=== PATIENT | male | born 1975 | race Two or more races ===

== ENCOUNTER 2017-03-17 15:58 | Emergency (ER) | payer SELFPAY ==
[2017-03-17] MEDS ORDERED: ONDANSETRON HCL INJ/PF 4 MG/2 ML SDV IV ONE ×2 (17:22→20:09)
[2017-03-17] MEDS ORDERED: MORPHINE SULFATE 10 MG/ML INJ IV ONE (17:22)
[2017-03-17] MEDS ORDERED: NORMAL SALINE 1000 ML 1,000 ML IV ONE (17:22)
--- NOTE | 2017-03-17 17:22 | ER Document Report ---
ED Medical Screen (RME) - General Mode of Arrival: Ambulatory Information source: Patient TRAVEL OUTSIDE OF THE [place] IN LAST 30 DAYS: No - HPI Patient complains to provider of: abdominal pain Onset: Other - yesterday Associated Symptoms: Other - see notes above - Related Data Smoking: Non-smoker Frequency of alcohol use: Occasional <DEEPAK GONCALVES - Last Filed: 03/17/17 18:01> <CORNELIUS KAISER - Last Filed: 03/27/17 07:00> - General Chief Complaint: Abdominal Pain Stated Complaint: ABDOMINAL PAIN Time Seen by Provider: 03/17/17 17:12 Notes: 41 year old male with no prior medical history presents to the ED complaining of periumbilical abdominal pain that started yesterday and worsened today. Patient reports that the pain does not radiate, but complains of diarrhea and dry heaving. Patient denies vomiting. I have greeted and performed a rapid initial assessment of this patient. A comprehensive ED assessment and evaluation of the patient, analysis of test results and completion of the medical decision making process will be conducted by additional ED providers. (DEEPAK GONCALVES) - Related Data Allergies/Adverse Reactions: No Known Drug Allergies Allergy (Verified 03/17/17 19:40) Past Medical History - General Information source: Patient - Social History Chew tobacco use (# tins/day): No Frequency of alcohol use: None Drug Abuse: None Family history: Reviewed & Not Pertinent - Medical History Medical History: Negative Renal/ Medical History: Denies: Hx Peritoneal Dialysis Past Surgical History: Reports: Hx Orthopedic Surgery - back <DEEPAK GONCALVES - Last Filed: 03/17/17 18:01> Review of Systems - Review of Systems Constitutional: No symptoms reported EENT: No symptoms reported Cardiovascular: No symptoms reported Respiratory: No symptoms reported Gastrointestinal: See HPI, Abdominal pain, Diarrhea, Other - dry heaving. denies: Vomiting Genitourinary: No symptoms reported Male Genitourinary: No symptoms reported Musculoskeletal: No symptoms reported Skin: No symptoms reported Hematologic/Lymphatic: No symptoms reported Neurological/Psychological: No symptoms reported -: Yes All other systems reviewed and negative <DEEPAK GONCALVES - Last Filed: 03/17/17 18:01> Physical Exam - General General appearance: Alert In distress: None - HEENT Head: Normocephalic, Atraumatic Eyes: Normal Extraocular movements intact: Yes Pupils: PERRL - Respiratory Respiratory status: No respiratory distress Breath sounds: Normal - Cardiovascular Rhythm: Regular Heart sounds: Normal auscultation - Abdominal Inspection: Normal Distension: No distension Tenderness: Tender - periumbilical and RLQ tenderness to palpation <DEEPAK GONCALVES - Last Filed: 03/17/17 18:01> Course - Laboratory Result Diagrams: 03/17/17 17:36 03/17/17 17:36 <DEEPAK GONCALVES - Last Filed: 03/17/17 18:01> - Laboratory Result Diagrams: 03/17/17 17:36 03/17/17 19:50 <CORNELIUS KAISER - Last Filed: 03/27/17 07:00> - Re-evaluation Re-evalutation: 03/27/17 07:00 I personally performed the services described in the documentation, reviewed and edited the documentation which was dictated to the scribe in my presence, and it accurately records my words and actions. (CORNELIUS KAISER) - Vital Signs Vital signs: Temp Pulse Resp BP Pulse Ox 98.4 F 79 14 143/92 H 98 03/17/17 21:09 03/17/17 21:09 03/17/17 21:09 03/17/17 21:09 03/17/17 21:09 - Laboratory Laboratory results interpreted by me: 03/17/17 03/17/17 17:31 17:36 WBC 15.1 H Seg Neutrophils % 81.5 H Absolute Neutrophils 12.3 H Urine Protein 30 H Urine Ketones TRACE H Urine Ascorbic Acid 40 H Doctor's Discharge <DEEPAK GONCALVES - Last Filed: 03/17/17 18:01> <CORNELIUS KAISER - Last Filed: 03/27/17 07:00> - Discharge Clinical Impression: Diarrhea, Abdominal cramps Condition: Good Disposition: HOME, SELF-CARE Instructions: Observation for Appendicitis ([facility]) Additional Instructions: Your symptoms are likely due to a viral illness and should resolve in the next several days. You can take [id number] loperamide also known as Imodium as needed for diarrhea per box instructions. Continue to stay hydrated with plenty of solution such as Gatorade or Pedialyte. You are being prescribed Zofran to take as needed for nausea and vomiting. Please return if you develop severe abdominal pain, pass out, become unable to tolerate any oral fluids for 12 more hours, or any other symptoms that are concerning to you. Scribe Documentation - Scribe Written by Erin:: Erin Cordova, 03/17/2017 1759 acting as scribe for :: [place] <DEEPAK GONCALVES - Last Filed: 03/17/17 18:01>
[2017-03-17 17:58] LABS: ABSOLUTE EOSINOPHILS # (AUTO) 0.1 10^3/uL (0.0-0.6); ABSOLUTE MONOCYTES (AUTO) 0.7 10^3/uL (0.1-1.4); ABSOLUTE NEUT (AUTO) 12.3 10^3/uL (1.7-8.2); BASOPHILS % (AUTO) 0.2 % (0-2); EOSINOPHILS % (AUTO) 0.3 % (0-6); HEMATOCRIT 48.2 % (37.9-51.0); HEMOGLOBIN 16.3 g/dL (13.5-17.0); HGB HCT DIFFERENCE 0.7; LYMPHOCYTES % (AUTO) 13.4 % (13-45); MEAN CORPUSCULAR HEMOGLOBIN 30.3 pg (27.0-33.4); MEAN CORPUSCULAR HGB CONC 33.9 g/dL (32.0-36.0); MEAN CORPUSCULAR VOLUME 90 fl (80-97); MONOCYTES % (AUTO) 4.6 % (3-13); RED BLOOD COUNT 5.39 10^6/uL (4.35-5.55); RED CELL DISTRIBUTION WIDTH 13.8 % (11.5-14.0); SEGMENTED NEUTROPHILS % (AUTO) 81.5 % (42-78); WHITE BLOOD COUNT 15.1 10^3/uL (4.0-10.5)
--- NOTE | 2017-03-17 18:57 | ER Document Report ---
ED General - General Chief Complaint: Abdominal Pain Stated Complaint: ABDOMINAL PAIN Time Seen by Provider: 03/17/17 17:12 Mode of Arrival: Ambulatory Notes: Patient is a 41 year old male without past medical history who presents with 36 hours of persistent, watery diarrhea with associated abdominal cramping. Patient states that he has "been unable to get off the toilet" for the last day and a half due to persistent watery diarrhea. With his he notes an associated diffuse, mild, abdominal cramping. He has not had any fever. Notes nausea without vomiting. No history of similar symptoms in the past. His significant other has had similar symptoms but they resolved more rapidly. He has not seen his primary care doctor regarding today's concerns. He has not noted that anything seems to improve or worsen his symptoms. TRAVEL OUTSIDE OF THE [place] IN LAST 30 DAYS: No - Related Data Allergies/Adverse Reactions: No Known Drug Allergies Allergy (Verified 03/17/17 19:40) Past Medical History - General Information source: Patient - Social History Smoking Status: Never Smoker Chew tobacco use (# tins/day): No Frequency of alcohol use: None Drug Abuse: None Lives with: Spouse/Significant other Family History: Reviewed & Not Pertinent Patient has suicidal ideation: No Patient has homicidal ideation: No - Medical History Medical History: Negative Renal/ Medical History: Denies: Hx Peritoneal Dialysis Past Surgical History: Reports: Hx Orthopedic Surgery - back Review of Systems - Review of Systems Notes: Constitutional: Negative for fever. HENT: Negative for sore throat. Eyes: Negative for visual changes. Cardiovascular: Negative for chest pain. Respiratory: Negative for shortness of breath. Gastrointestinal: Positive for abdominal pain and diarrhea Genitourinary: Negative for dysuria. Musculoskeletal: Negative for back pain. Skin: Negative for rash. Neurological: Negative for headaches, weakness or numbness. 10 point ROS negative except as marked above and in HPI. Physical Exam - Vital signs Vitals: Temp Pulse Resp BP Pulse Ox 98.2 F 107 H 18 154/115 H 97 03/17/17 16:08 03/17/17 16:08 03/17/17 16:08 03/17/17 16:08 03/17/17 16:08 Interpretation: Tachycardic Notes: PHYSICAL EXAMINATION: GENERAL: Well-appearing, well-nourished and in no acute distress. HEAD: Atraumatic, normocephalic. EYES: Pupils equal round and reactive to light, extraocular movements intact, sclera anicteric, conjunctiva are normal. ENT: nares patent, oropharynx clear without exudates. Moist mucous membranes. NECK: Normal range of motion, supple without lymphadenopathy LUNGS: Breath sounds clear to auscultation bilaterally and equal. No wheezes rales or rhonchi. HEART: Regular rate and rhythm without murmurs ABDOMEN: Soft, nontender, normoactive bowel sounds. No guarding, no rebound. No masses appreciated. EXTREMITIES: Normal range of motion, no pitting or edema. No cyanosis. NEUROLOGICAL: No focal neurological deficits. Moves all extremities spontaneously and on command. PSYCH: Normal mood, normal affect. SKIN: Warm, Dry, normal turgor, no rashes or lesions noted. Course - Re-evaluation Re-evalutation: 03/17/17 18:56 Presentation of an overall well-appearing patient in no acute distress with complaints of nausea, vomiting, diarrhea. This is consistent with likely viral gastroenteritis. Patient has no abdominal tenderness on exam and specifically no tenderness in the RLQ, LLQ, RUQ. Contrary to triage assessment was reported right lower quadrant tenderness patient himself actually denies any pain to me whatsoever and states that the main issue is that he was having recurrent diarrhea and diffuse abdominal cramping which is why he came to the emergency department. He has absolutely no focal tenderness whatsoever on exam to suggest an acute appendicitis. Overall well hydrated on exam. Able to tolerate oral intake here in the emergency department. Low clinical suspicion for any acute life-threatening etiology based on exam and history including acute cholecystitis, SBO, appendicitis, nephrolithiasis, or pylonephritis. CMP without evidence of acute hepatitis or significant dehydration. I have had a risks and benefits conversation with the patient regarding CT imaging of the abdomen and pelvis at this time. We discussed, based on today's exam and labs there is a possibility that they could have a diagnosis that could be better clarified by CT and that this could possibly military exchange [employer]. We discussed the risks of radiation to the abdomen and pelvis. We discussed the alternative of close follow-up with their primary care physician for a recheck of the abdomen within 24 hours as well as reasons to return to the emergency department. After this conversation, the patient has elected to avoid CT imaging of the abdomen and pelvis at this time. They have capacity. They have verbalized the importance of close follow-up as well as reasons to return to the emergency department including worsening abdominal pain, fever, persistent vomiting, or any other symptoms that are worrisome to them. - Vital Signs Vital signs: Temp Pulse Resp BP Pulse Ox 98.4 F 79 14 143/92 H 98 03/17/17 21:09 03/17/17 21:09 03/17/17 21:09 03/17/17 21:09 03/17/17 21:09 - Laboratory Result Diagrams: 03/17/17 17:36 03/17/17 19:50 Laboratory results interpreted by me: 03/17/17 03/17/17 17:31 17:36 WBC 15.1 H Seg Neutrophils % 81.5 H Absolute Neutrophils 12.3 H Urine Protein 30 H Urine Ketones TRACE H Urine Ascorbic Acid 40 H Discharge - Discharge Clinical Impression: Abdominal cramping Diarrhea Qualifiers: Diarrhea type: unspecified type Qualified Code(s): R19.7 - Diarrhea, unspecified Condition: Good Disposition: HOME, SELF-CARE Instructions: Observation for Appendicitis ([facility]) Additional Instructions: Your symptoms are likely due to a viral illness and should resolve in the next several days. You can take wroy-lib-irbrjyo loperamide also known as Imodium as needed for diarrhea per box instructions. Continue to stay hydrated with plenty of solution such as Gatorade or Pedialyte. You are being prescribed Zofran to take as needed for nausea and vomiting. Please return if you develop severe abdominal pain, pass out, become unable to tolerate any oral fluids for 12 more hours, or any other symptoms that are concerning to you.
[2017-03-17 19:14] LABS: APPEARANCE,URINE SLIGHTLY-CLOUDY; BILIRUBIN,URINE NEGATIVE (NEGATIVE); GLUCOSE, URINE NEGATIVE (NEGATIVE); KETONES,URINE TRACE mg/dL (NEGATIVE); LEUKOCYTE ESTERASE,URINE NEGATIVE (NEGATIVE); NITRITE,URINE NEGATIVE (NEGATIVE); PROTEIN,URINE 30 mg/dL (NEGATIVE); URINE SPECIFIC GRAVITY 1.031; UROBILINOGEN,URINE NEGATIVE mg/dL (<2.0)
[2017-03-17 20:19] LABS: ALANINE AMINOTRANSFERASE 30 U/L (21-72); ALBUMIN 4.6 g/dL (3.5-5.0); ALKALINE PHOSPHATASE 64 U/L (38-126); ANION GAP 13 (5-19); ASPARTATE AMINO TRANSFERASE 20 U/L (17-59); BILIRUBIN,DIRECT 0.3 mg/dL (0.0-0.4); BILIRUBIN,TOTAL 0.7 mg/dL (0.2-1.3); BLOOD UREA NITROGEN 14 mg/dL (7-20); CALCIUM 9.8 mg/dL (8.4-10.2); CARBON DIOXIDE 22 mmol/L (22-30); CHLORIDE 106 mmol/L (98-107); CREATININE RESULT 0.76 mg/dL (0.52-1.25); GLUCOSE 93 mg/dL (75-110); LIPASE 154.6 U/L (23-300); POTASSIUM 4.5 mmol/L (3.6-5.0); SODIUM 141.4 mmol/L (137-145); TOTAL PROTEIN 7.5 g/dL (6.3-8.2)
[2017-03-17] MEDS ORDERED: ONDANSETRON ODT 4 MG TAB (6 TAB/DSPK) PO PRN (20:56)
[2017-03-17 21:21] VITALS: BP 143/92
== END 2017-03-17 21:15 | disposition home or self-care (01) ==
LOC: ER 15:58
DX: R10.84 Generalized abdominal pain (principal); R19.7 Diarrhea, unspecified; R11.0 Nausea; R00.0 Tachycardia, unspecified
CPT/HCPCS: 96376; 99284; 96361; 96374; 96375; 36415; 83690; 85025; 80053; 81001; J2270; J2405; J7030

== ENCOUNTER 2017-11-08 17:02 | Emergency (ER) | payer OTHER ==
--- NOTE | 2017-11-08 18:00 | ER Document Report ---
ED Medical Screen (RME) - General Chief Complaint: Breathing Difficulty Stated Complaint: SHORTNESS OF BREATH Time Seen by Provider: 11/08/17 17:58 Mode of Arrival: Ambulatory Information source: Patient TRAVEL OUTSIDE OF THE [place] IN LAST 30 DAYS: No - HPI Patient complains to provider of: cp; sob Onset: Other - pt states he has been having intermittent CP and SOB for the past few days; has not taken ASA today - Related Data Allergies/Adverse Reactions: No Known Drug Allergies Allergy (Verified 11/08/17 17:02) Past Medical History - Social History Chew tobacco use (# tins/day): No Frequency of alcohol use: None Drug Abuse: None Family history: Reviewed & Not Pertinent - Past Medical History Cardiac Medical History: Reports: Hx Hypertension - no meds Renal/ Medical History: Denies: Hx Peritoneal Dialysis Past Surgical History: Reports: Hx Orthopedic Surgery - back Physical Exam - Vital signs Vitals: Temp Pulse Resp BP Pulse Ox 98.2 F 97 16 148/113 H 97 11/08/17 17:17 11/08/17 17:17 11/08/17 17:17 11/08/17 17:17 11/08/17 17:17 Course - Vital Signs Vital signs: Temp Pulse Resp BP Pulse Ox 98.2 F 97 16 155/108 H 97 11/08/17 17:17 11/08/17 17:17 11/08/17 17:17 11/08/17 17:19 11/08/17 17:17
[2017-11-08] MEDS: ASPIRIN 81 MG TABLET, CHEWABLE PO ONE (18:05)
--- NOTE | 2017-11-08 18:42 | RADIOLOGY REPORT (SQ) ---
EXAM DESCRIPTION: CHEST PA/LAT COMPLETED DATE/TIME: 11/08/2017 6:32 pm REASON FOR STUDY: cp COMPARISON: None. NUMBER OF VIEWS: Two view. TECHNIQUE: Frontal and lateral radiographic views of the chest acquired. LIMITATIONS: None. FINDINGS: LUNGS AND PLEURA: 1 cm vague nodular density projected over the left mid lung zone. No p revious chest x-rays. Recommend correlation with any outside studies -CT of the chest if none availa ble. Remainder the lungs clear. MEDIASTINUM AND HILAR STRUCTURES: No masses or contour abnormalities. HEART AND VASCULATURE: Heart normal size. No evidence for failure. BONY STRUCTURES: No acute findings. HARDWARE: None. OTHER: No other significant finding. IMPRESSION: Vague 1 cm nodular density projected over the left mid lung. See above discussion. TECHNICAL DOCUMENTATION: JOB ID: [id number] [employer]- All Rights Reserved
[2017-11-08 19:00] LABS: ABSOLUTE EOSINOPHILS # (AUTO) 0.1 10^3/uL (0.0-0.6); ABSOLUTE LYMPHOCYTES (AUTO) 2.1 10^3/uL (0.5-4.7); ABSOLUTE MONOCYTES (AUTO) 0.4 10^3/uL (0.1-1.4); ABSOLUTE NEUT (AUTO) 4.4 10^3/uL (1.7-8.2); BASOPHILS % (AUTO) 0.4 % (0-2); EOSINOPHILS % (AUTO) 1.1 % (0-6); HEMATOCRIT 45.4 % (37.9-51.0); HEMOGLOBIN 15.6 g/dL (13.5-17.0); LYMPHOCYTES % (AUTO) 29.8 % (13-45); MEAN CORPUSCULAR HEMOGLOBIN 30.3 pg (27.0-33.4); MEAN CORPUSCULAR HGB CONC 34.3 g/dL (32.0-36.0); MEAN CORPUSCULAR VOLUME 88 fl (80-97); MONOCYTES % (AUTO) 6.3 % (3-13); PLATELET COUNT 324 10^3/uL (150-450); RED BLOOD COUNT 5.14 10^6/uL (4.35-5.55); SEGMENTED NEUTROPHILS % (AUTO) 62.4 % (42-78); TOTAL CELLS COUNTED % (AUTO) 100 %
[2017-11-08 19:26] LABS: ALANINE AMINOTRANSFERASE 56 U/L (21-72); ALBUMIN 4.8 g/dL (3.5-5.0); ALKALINE PHOSPHATASE 58 U/L (38-126); ANION GAP 11 (5-19); ASPARTATE AMINO TRANSFERASE 45 U/L (17-59); BILIRUBIN,DIRECT 0.4 mg/dL (0.0-0.4); BILIRUBIN,TOTAL 0.4 mg/dL (0.2-1.3); BLOOD UREA NITROGEN 10 mg/dL (7-20); CARBON DIOXIDE 28 mmol/L (22-30); CHLORIDE 102 mmol/L (98-107); CREATINE KINASE 191 U/L (55-170); GLUCOSE 80 mg/dL (75-110); POTASSIUM 4.4 mmol/L (3.6-5.0); SODIUM 141.3 mmol/L (137-145); TOTAL PROTEIN 7.7 g/dL (6.3-8.2)
[2017-11-08 19:37] LABS: CREATINE KINASE MB 2.99 ng/mL (<4.55)
[2017-11-08 19:40] LABS: TROPONIN I 0.041 ng/mL
--- NOTE | 2017-11-08 21:11 | ER Document Report ---
ED General - General Chief Complaint: Breathing Difficulty Stated Complaint: SHORTNESS OF BREATH Time Seen by Provider: 11/08/17 17:58 Mode of Arrival: Ambulatory Notes: 42-year-old male presents with 3 days of shortness of breath, constant with chest pressure all day. Preventing him from working out. He does not have any sharp chest pain no pleuritic component, no leg swelling. Nonexertional. Keeps him up at night sometimes. Intermittent palpitations. No sweating. No family history no smoking no known cancer. TRAVEL OUTSIDE OF THE [place] IN LAST 30 DAYS: No - Related Data Allergies/Adverse Reactions: No Known Drug Allergies Allergy (Verified 11/08/17 17:02) Past Medical History - General Information source: Patient - Social History Smoking Status: Never Smoker Chew tobacco use (# tins/day): No Frequency of alcohol use: None Drug Abuse: None Family History: Reviewed & Not Pertinent Patient has suicidal ideation: No Patient has homicidal ideation: No - Past Medical History Cardiac Medical History: Reports: Hx Hypertension - no meds Renal/ Medical History: Denies: Hx Peritoneal Dialysis Past Surgical History: Reports: Hx Orthopedic Surgery - back Review of Systems - Review of Systems Notes: REVIEW OF SYSTEMS GEN: Denies fever, chills, weight loss ENT: Denies sore throat, nasal discharge, ear pain EYES: Denies blurry vision, eye pain, discharge CV: His pressure, palpitations, denies edema RESP: Shortness of breath GI: Denies abdominal pain, nausea, vomiting, diarrhea MSK: Denies joint pain/swelling, edema, SKIN: Denies rash, skin lesions LYMPH: Denies swollen glands/lymph nodes NEURO: Denies headache, focal weakness or numbness, dizziness PSYCH: Denies depression, suicidal or homicidal ideation PHYSICAL EXAMINATION General: No acute distress, well-nourished Head: Atraumatic, normocephalic ENT: Mouth normal, oropharynx moist, no exudates or tonsillar enlargement Eyes: Conjunctiva normal, pupils equal, lids normal Neck: No JVD, supple, no guarding CVS: Normal rate, regular rhythm, no murmurs Resp: No resp distress, equal and normal breath sounds bilaterally GI: Nondistended, soft, no tenderness to palpation, no rebound or guarding Ext: No deformities, no edema, normal range of motion in upper and lower ext Back: No CVA or midline TTP Skin: No rash, warm Lymphatic: No lymphadeopathy noted Neuro: Awake, alert. Face symmetric. GCS 15. Physical Exam - Vital signs Vitals: Temp Pulse Resp BP Pulse Ox 98.2 F 97 16 148/113 H 97 11/08/17 17:17 11/08/17 17:17 11/08/17 17:17 11/08/17 17:17 11/08/17 17:17 Course - Re-evaluation Re-evalutation: 11/08/17 21:10 Patient presents with chest pressure and shortness of breath for 3 days. He is PERC negative. His lungs are normal, as is his exam. He has no risk factors for coronary disease and is a healthy young man. His workup ordered at triage shows a negative d-dimer normal labs and a normal EKG. He has a lesion in his left hemithorax on his chest film. It does not look like pneumonia especially given no cough or fever. He was instructed that he will definitely need CT and follow-up for this nodule, he does not have a primary care but has a care [facility] he will be referred to [facility]. Spoke with patient access about expedited follow-up. Do not think he needs a CT in the ED tonight. I have discussed with the patient there likely diagnosis, aftercare plan, follow -up plans and my usual and customary return precautions. They verbalized understanding of this. - Vital Signs Vital signs: Temp Pulse Resp BP Pulse Ox 98.2 F 97 16 155/108 H 97 11/08/17 17:17 11/08/17 17:17 11/08/17 17:17 11/08/17 17:19 11/08/17 17:17 - Laboratory Result Diagrams: 11/08/17 18:40 11/08/17 18:40 Laboratory results interpreted by me: 11/08/17 18:40 Creatine Kinase 191 H - Diagnostic Test Radiology reviewed: Image reviewed, Reports reviewed - EKG Interpretation by Me EKG shows normal: Sinus rhythm Rate: Normal When compared to previous EKG there are: Previous EKG unavailable Additional EKG results interpreted by me: 11/08/17 21:06 Specifically no signs of ischemia Discharge - Discharge Clinical Impression: Shortness of breath Condition: Good Disposition: HOME, SELF-CARE Instructions: Dyspnea, Nonspecific ([facility]) Additional Instructions: There is a small round nodule in her left lung that we found. I do not think it is causing her symptoms. It does, however need follow-up with [place] [facility] scan and primary care. We have referred you to [facility] to get this done. They may also want to do a stress test for you. If anything changes and your symptoms worsen please return to the ER for further evaluation. Referrals: [facility] [Provider Group] - Follow up in 1 week
[2017-11-08 21:39] VITALS: BP 144/100
--- NOTE | 2017-11-08 22:40 | EKG REPORT ---
SEVERITY:- NORMAL ECG - SINUS RHYTHM : Confirmed by: Wilfrid Quinones 08-Nov-2017 22:39:32
== END 2017-11-08 21:42 | disposition home or self-care (01) ==
LOC: ER 17:02
DX: R06.02 Shortness of breath (principal); R07.89 Other chest pain; R91.8 Other nonspecific abnormal finding of lung field; R00.2 Palpitations; I10 Essential (primary) hypertension
CPT/HCPCS: 36415; 71046; 80053; 82550; 82553; 84484; 85025; 85379; 93005; 93010; 99285

== ENCOUNTER 2017-11-09 15:41 | Emergency (ER) | payer OTHER ==
--- NOTE | 2017-11-09 17:25 | ER Document Report ---
ED Medical Screen (RME) - General Chief Complaint: Shortness Of Breath Stated Complaint: SHORTNESS OF BREATH Time Seen by Provider: 11/09/17 17:16 Notes: Patient is a 42 year old male who presents to the ED complaining of chest pressure that started suddenly on Tuesday. feels like he cant catch his breath. Denies pain. Denies fevers, cough, denies reflux, nausea. h/o anxiety. franca h/o COPD, asthma. nonsmoker TRAVEL OUTSIDE OF THE [place] IN LAST 30 DAYS: No - Related Data Allergies/Adverse Reactions: No Known Drug Allergies Allergy (Verified 11/09/17 15:45) Past Medical History - Social History Family history: Reviewed & Not Pertinent - Past Medical History Cardiac Medical History: Reports: Hx Hypertension - no meds Renal/ Medical History: Denies: Hx Peritoneal Dialysis Past Surgical History: Reports: Hx Orthopedic Surgery - back Physical Exam - Vital signs Vitals: Temp Pulse Resp BP Pulse Ox 99.1 F 88 18 145/94 H 98 11/09/17 15:56 11/09/17 15:56 11/09/17 15:56 11/09/17 15:56 11/09/17 15:56 - Notes Notes: PHYSICAL EXAM GENERAL: Alert, interacts well. NECK: Full range of motion. Supple. Trachea midline. LUNGS: Clear to auscultation bilaterally, no wheezes, rales, or rhonchi. No respiratory distress. HEART: Regular rate and rhythm. No murmurs, gallops, or rubs. NEUROLOGICAL: Alert and oriented x4. Normal speech. PSYCH: Normal affect, normal mood. SKIN: Warm, dry, normal turgor. No rashes or lesions noted. Course - Vital Signs Vital signs: Temp Pulse Resp BP Pulse Ox 99.1 F 88 18 145/94 H 98 11/09/17 15:56 11/09/17 15:56 11/09/17 15:56 11/09/17 15:56 11/09/17 15:56
[2017-11-09] MEDS ORDERED: ASPIRIN 81 MG TABLET, CHEWABLE PO ONE (17:26)
[2017-11-09 18:25] LABS: ABSOLUTE EOSINOPHILS # (AUTO) 0.1 10^3/uL (0.0-0.6); ABSOLUTE LYMPHOCYTES (AUTO) 2.3 10^3/uL (0.5-4.7); ABSOLUTE MONOCYTES (AUTO) 0.6 10^3/uL (0.1-1.4); ABSOLUTE NEUT (AUTO) 5.1 10^3/uL (1.7-8.2); BASOPHILS % (AUTO) 0.4 % (0-2); EOSINOPHILS % (AUTO) 1.3 % (0-6); HEMATOCRIT 46.5 % (37.9-51.0); HEMOGLOBIN 16.4 g/dL (13.5-17.0); LYMPHOCYTES % (AUTO) 28.2 % (13-45); MEAN CORPUSCULAR HEMOGLOBIN 30.9 pg (27.0-33.4); MEAN CORPUSCULAR HGB CONC 35.3 g/dL (32.0-36.0); MEAN CORPUSCULAR VOLUME 88 fl (80-97); MONOCYTES % (AUTO) 7.4 % (3-13); PLATELET COUNT 327 10^3/uL (150-450); RED BLOOD COUNT 5.31 10^6/uL (4.35-5.55); RED CELL DISTRIBUTION WIDTH 14.3 % (11.5-14.0); SEGMENTED NEUTROPHILS % (AUTO) 62.7 % (42-78); TOTAL CELLS COUNTED % (AUTO) 100 %; WHITE BLOOD COUNT 8.2 10^3/uL (4.0-10.5)
[2017-11-09 18:53] LABS: ALANINE AMINOTRANSFERASE 50 U/L (21-72); ALBUMIN 4.9 g/dL (3.5-5.0); ALKALINE PHOSPHATASE 56 U/L (38-126); ANION GAP 13 (5-19); ASPARTATE AMINO TRANSFERASE 52 U/L (17-59); BILIRUBIN,DIRECT 0.5 mg/dL (0.0-0.4); BILIRUBIN,TOTAL 0.6 mg/dL (0.2-1.3); BLOOD UREA NITROGEN 11 mg/dL (7-20); CALCIUM 10.6 mg/dL (8.4-10.2); CARBON DIOXIDE 30 mmol/L (22-30); CHLORIDE 100 mmol/L (98-107); CREATINE KINASE 158 U/L (55-170); GLUCOSE 85 mg/dL (75-110); POTASSIUM 4.1 mmol/L (3.6-5.0); SODIUM 142.9 mmol/L (137-145); TOTAL PROTEIN 8.1 g/dL (6.3-8.2)
[2017-11-09 19:06] LABS: CREATINE KINASE MB 3.26 ng/mL (<4.55)
[2017-11-09 19:09] LABS: TROPONIN I 0.049 ng/mL
--- NOTE | 2017-11-09 20:09 | RADIOLOGY REPORT (SQ) ---
EXAM DESCRIPTION: CHEST PA/LAT COMPLETED DATE/TIME: 11/09/2017 7:55 pm REASON FOR STUDY: sob COMPARISON: 11/08/2017 EXAM PARAMETERS: NUMBER OF VIEWS: two views TECHNIQUE: Digital Frontal and Lateral radiographic views of the chest acquired. RADIATION DOSE: NA LIMITATIONS: none FINDINGS: LUNGS AND PLEURA: No opacities, masses or pneumothorax. No pleural effusion. MEDIASTINUM AND HILAR STRUCTURES: No masses or contour abnormalities. HEART AND VASCULAR STRUCTURES: Heart normal size. No evidence for failure. BONES: No acute findings. HARDWARE: None in the chest. OTHER: No other significant finding. IMPRESSION: NO SIGNIFICANT RADIOGRAPHIC FINDING IN THE CHEST. TECHNICAL DOCUMENTATION: JOB ID: [id number] [email or web address]- All Rights Reserved
--- NOTE | 2017-11-09 20:51 | ER Document Report ---
ED General - General Chief Complaint: Shortness Of Breath Stated Complaint: SHORTNESS OF BREATH Time Seen by Provider: 11/09/17 17:16 Mode of Arrival: Ambulatory Information source: Patient TRAVEL OUTSIDE OF THE [place] IN LAST 30 DAYS: No - HPI Patient complains to provider of: sob Onset: Other - 5 days ago Quality of pain: No pain Associated symptoms: None Exacerbated by: Denies Similar symptoms previously: Yes Recently seen / treated by doctor: Yes - seen here yesterday Notes: States he is short of breath since Tuesday. He states he went to the gym on Tuesday to do cardio workout without any issues. On Tuesday he began short of breath and he feels like he just cannot take a deep breath. Patient has social anxiety he does not have anxiety attacks. He does not smoke, no diabetes high cholesterol or family history of heart disease. he has not had any cough, fever , chest pain, dizziness, syncope or palpitations. Patient states he has a history of hypertension but is not take any meds for it - Related Data Allergies/Adverse Reactions: No Known Drug Allergies Allergy (Verified 11/09/17 17:26) Past Medical History - General Information source: Patient - Social History Smoking Status: Never Smoker Chew tobacco use (# tins/day): No Frequency of alcohol use: Rare Drug Abuse: Marijuana Lives with: Family Family History: Reviewed & Not Pertinent Patient has suicidal ideation: No Patient has homicidal ideation: No - Past Medical History Cardiac Medical History: Reports: Hx Hypertension - no meds Pulmonary Medical History: Reports: None Renal/ Medical History: Denies: Hx Peritoneal Dialysis GI Medical History: Reports: None Musculoskeltal Medical History: Reports None Psychiatric Medical History: Reports: None Traumatic Medical History: Reports: None Infectious Medical History: Reports: None Past Surgical History: Reports: Hx Orthopedic Surgery - back Review of Systems - Review of Systems Constitutional: No symptoms reported EENT: No symptoms reported Cardiovascular: No symptoms reported Respiratory: See HPI Gastrointestinal: No symptoms reported Genitourinary: No symptoms reported Male Genitourinary: No symptoms reported Musculoskeletal: No symptoms reported Skin: No symptoms reported Hematologic/Lymphatic: No symptoms reported Neurological/Psychological: No symptoms reported Physical Exam - Vital signs Vitals: Temp Pulse Resp BP Pulse Ox 99.1 F 88 18 145/94 H 98 11/09/17 15:56 11/09/17 15:56 11/09/17 15:56 11/09/17 15:56 11/09/17 15:56 - Notes Notes: PHYSICAL EXAMINATION: GENERAL: Well-appearing, well-nourished and in no acute distress. No conversational dyspnea HEAD: Atraumatic, normocephalic. EYES: Pupils equal round and reactive to light, extraocular movements intact, sclera anicteric, conjunctiva are normal. ENT: Nares patent, oropharynx clear without exudates. Moist mucous membranes. NECK: Normal range of motion, supple without lymphadenopathy LUNGS: Breath sounds clear to auscultation bilaterally and equal. No wheezes rales or rhonchi. HEART: Regular rate and rhythm without murmurs ABDOMEN: Soft, nontender, nondistended abdomen. No guarding, no rebound. No masses appreciated. Musculoskeletal: Normal range of motion, no pitting or edema. No cyanosis. NEUROLOGICAL: Cranial nerves grossly intact. Normal speech, normal gait. Normal sensory, motor exams PSYCH: Normal mood, normal affect. SKIN: Warm, Dry, normal turgor, no rashes or lesions noted. Course - Re-evaluation Re-evalutation: 11/09/17 20:53 States he went to the care clinic and cannot get an appointment until January. He is here because he continues to be short of breath. 11/09/17 23:01 Labs- All tests 24 hr 11/09/17 11/09/17 11/09/17 18:00 18:00 18:00 WBC 8.2 RBC 5.31 Hgb 16.4 Hct 46.5 MCV 88 MCH 30.9 MCHC 35.3 RDW 14.3 H Plt Count 327 Seg Neutrophils % 62.7 Lymphocytes % 28.2 Monocytes % 7.4 Eosinophils % 1.3 Basophils % 0.4 Absolute Neutrophils 5.1 Absolute Lymphocytes 2.3 Absolute Monocytes 0.6 Absolute Eosinophils 0.1 Absolute Basophils 0.0 Sodium 142.9 Potassium 4.1 Chloride 100 Carbon Dioxide 30 Anion Gap 13 BUN 11 Creatinine 0.94 Est GFR ( Amer) > 60 Est GFR (Non-Af Amer) > 60 Glucose 85 Calcium 10.6 H Total Bilirubin 0.6 Direct Bilirubin 0.5 H Neonat Total Bilirubin Not Reportable Neonat Direct Bilirubin Not Reportable Neonat Indirect Bili Not Reportable AST 52 ALT 50 Alkaline Phosphatase 56 Creatine Kinase 158 CK-MB (CK-2) 3.26 Troponin I 0.049 Total Protein 8.1 Albumin 4.9 11/09/17 21:26 WBC RBC Hgb Hct MCV MCH MCHC RDW Plt Count Seg Neutrophils % Lymphocytes % Monocytes % Eosinophils % Basophils % Absolute Neutrophils Absolute Lymphocytes Absolute Monocytes Absolute Eosinophils Absolute Basophils Sodium Potassium Chloride Carbon Dioxide Anion Gap BUN Creatinine Est GFR ( Amer) Est GFR (Non-Af Amer) Glucose Calcium Total Bilirubin Direct Bilirubin Neonat Total Bilirubin Neonat Direct Bilirubin Neonat Indirect Bili AST ALT Alkaline Phosphatase Creatine Kinase CK-MB (CK-2) Troponin I 0.035 Total Protein Albumin Chest X-Ray 11/09/17 19:43 IMPRESSION: NO SIGNIFICANT RADIOGRAPHIC FINDING IN THE CHEST. Chest/Abdomen CTA 11/09/17 20:49 IMPRESSION: No emboli visualized in the main pulmonary arteries or the segmental branches.Mild thickening of the distal esophageal wall measuring up to 8 mm thickness, correlate with clinical history. Additional outpatient evaluation recommended. There an ovoid 10 mm somewhat irregular nodule in the left upper lobe in the anterior-lateral subpleural location, seen best on image number 48. Follow-up is recommended with PET-CT to further evaluate. I went back in to talk to the patient. I sat down and I brought a copy of the CAT scan report with me. I told him that there was thickening of his distal esophagus which is the tube that goes into his stomach. I told him he needed to follow-up with gastroenterology to have this looked at. Patient denied any history of reflux. I also told him that he knew he had a nodule in his right upper lung area and that it was 10 mm or 1 cm and that the radiologist was recommending a certain kind of CAT scan be done to evaluate this further. Patient states he understands. I gave him a copy of the CAT scan with the 2 entities circled. He stated that he could not get an appointment care clinic until he could show them that he try to apply for Medicaid and he could not get it. He is currently on Worker's Compensation and does not have insurance. Told him that he needs to go down the Social Security office within the next 2 days to apply for Medicaid and once it is denied if it is needs to call care clinic for follow-up appointment. I told him if he does get Medicaid and he can find another physician that takes that for payment. I did tell the patient that if he had any worsening of symptoms he can return to the emergency department. Over the patient's vital signs and told him that throughout his hospital stay on room air without additional oxygen he was 100%. All questions were answered patient left the department in stable condition. - Vital Signs Vital signs: Temp Pulse Resp BP Pulse Ox 99.1 F 88 15 128/95 H 100 11/09/17 15:56 11/09/17 15:56 11/09/17 20:01 11/09/17 20:01 11/09/17 20:01 - Laboratory Result Diagrams: 11/09/17 18:00 11/09/17 18:00 Laboratory results interpreted by me: 11/09/17 11/09/17 18:00 18:00 RDW 14.3 H Calcium 10.6 H Direct Bilirubin 0.5 H - EKG Interpretation by Me EKG shows normal: Sinus rhythm - 68 When compared to previous EKG there are: No significant change Discharge - Discharge Clinical Impression: Pulmonary nodule, Esophageal thickening, Abnormal CAT scan Condition: Stable Disposition: HOME, SELF-CARE Additional Instructions: As discussed the findings of your CAT scan showed a thickened esophagus as well as a pulmonary nodule. You need to follow-up with gastroenterology regarding the thickened esophagus and you need to get a PET-CT to further evaluate the nodule in your lung. Please make an appointment with the care clinic as soon as possible. Return to the emergency department if you have worsening symptoms. Can also call gastroenterology and pulmonary to see if they will see you on a payment plan basis. Referrals: [facility] [Provider Group] - Follow up as needed SOPHY BENOIT MD [ACTIVE STAFF] - Follow up as needed SOCORRO RAYMOND PA-C [ALLIED HEALTH PROFESSIONAL] - Follow up as needed
--- NOTE | 2017-11-09 21:26 | EKG REPORT ---
SEVERITY:- NORMAL ECG - SINUS RHYTHM : Confirmed by: Wilfrid Quinones 09-Nov-2017 21:25:07
--- NOTE | 2017-11-09 22:25 | RADIOLOGY REPORT (SQ) ---
EXAM DESCRIPTION: CTA CHEST COMPLETED DATE/TIME: 11/09/2017 10:00 pm REASON FOR STUDY: sob COMPARISON: None. TECHNIQUE: CT scan of the chest performed using helical scanning technique with dynamic intravenous contrast injection. Images reviewed with lung, soft tissue and bone windows. Reconstructed coronal and sagittal MPR images reviewed. Additional 3 dimensional post-processing performed to develop Maximal Intensity Projection images (TN P). All images stored on PACS. All CT scanners at this facility use dose modulation, iterative reconstruction, and/or weight based d osing when appropriate to reduce radiation dose to as low as reasonably achievable (ALARA). [facility]: Dose Right [facility]: CareDose [facility]: Dose Right [facility]: Teradose 4D [facility]: [employer] CONTRAST TYPE AND DOSE: contrast/concentration: Isovue 370.00 mg/ml; Total Contrast Delivered: 100.0 ml; Total Saline Delivered: 55.0 ml Contrast bolus optimized for the pulmonary arteries. Not diagnostic for the aorta. RENAL FUNCTION: GFR > 60. RADIATION DOSE: CT Rad equipment meets quality standard of care and radiation dose reduction techniq ues were employed. CTDIvol: 9.9 - 22.7 mGy. DLP: 816 mGy-cm. . LIMITATIONS: None. FINDINGS: LUNGS AND PLEURA: There an ovoid 10 mm somewhat irregular nodule in the left upper lobe in the anterior-lateral subpleural location, seen best on image number 48. No pneumothorax. No consol idation or pleural effusions. AORTA AND GREAT VESSELS: No aneurysm. Contrast bolus not optimized for the aorta. HEART: No pericardial effusion. No significant coronary artery calcifications. PULMONARY ARTERIES: No emboli visualized in the main pulmonary arteries or the segmental branches. HILAR AND MEDIASTINAL STRUCTURES: Mild thickening of the distal esophageal wall measuring up to 8 mm thickness. No bulky nodes. HARDWARE: None in the chest. UPPER ABDOMEN: No significant findings. Limited exam. THYROID AND OTHER SOFT TISSUES: No masses. No adenopathy. BONES: No acute finding. 3D MIPS: Confirm above findings. OTHER: No other significant finding. IMPRESSION: No emboli visualized in the main pulmonary arteries or the segmental branches.Mild thick ening of the distal esophageal wall measuring up to 8 mm thickness, correlate with clinical history. Additional outpatient evaluation recommended. There an ovoid 10 mm somewhat irregular nodule in the left upper lobe in the anterior-lateral subpleu ral location, seen best on image number 48. Follow-up is recommended with PET-CT to further evaluate . COMMENT: Quality ID # 436: Final reports with documentation of one or more dose reduction techniques (e.g., Automated exposure control, adjustment of the mA and/or kV according to patient size, use of iterative reconstruction technique) TECHNICAL DOCUMENTATION: JOB ID: [id number] [place]-72 2010 [employer]- All Rights Reserved
[2017-11-09 23:29] VITALS: BP 134/89
== END 2017-11-09 23:30 | disposition home or self-care (01) ==
LOC: ER 15:41
DX: R91.1 Solitary pulmonary nodule (principal); K22.8 Other specified diseases of esophagus; R91.8 Other nonspecific abnormal finding of lung field
CPT/HCPCS: 36415; 71046; 71275; 80053; 82550; 82553; 84484; 85025; 93005; 93010; 99285

== ENCOUNTER → 2017-11-27 | Outpatient (CLI) | payer OTHER ==
--- NOTE | 2017-11-28 09:36 | RADIOLOGY REPORT (SQ) ---
EXAM DESCRIPTION: PET CT SKULL/THIGH COMPLETED DATE/TIME: 11/27/2017 9:01 pm REASON FOR STUDY: SOLITARY PULMONARY NODULE R91.1 SOLITARY PULMONARY NODULE COMPARISON: CT chest 11/09/2017 RADIONUCLIDE AND DOSE: 12.16 mCi F18 FDG The route of agent administration: Intravenous FASTING BLOOD SUGAR: 82 mg/dl CONTRAST TYPE AND DOSE: No CT contrast given. TECHNIQUE: Blood glucose level was verified. Above dose of FDG was injected intravenously. 2-D seg mented attenuation correction images were obtained from the base of the skull to the midthighs. Nonc ontrast CT images were obtained for attenuation correction and fusion with emission images. CT image s were performed without oral or intravenous contrast and are not sensitive for parenchymal lesions. A series of overlapping emission PET images were obtained. Images reviewed and manipulated at indep [employer] work station by the radiologist. Images stored on PACS. LIMITATIONS: None. FINDINGS: HEAD AND NECK: No areas of abnormal metabolic activity in the soft tissues of the head and neck. CHEST: The ground-glass opacity in the left upper lobe is not hypermetabolic. Minimal solid componen t. No additional lesions in the chest. ABDOMEN AND PELVIS: No areas of abnormal metabolic activity in the abdomen or pelvis. Expected physi ologic activity is present in the genitourinary system and bowel. PROXIMAL LOWER EXTREMITIES: No areas of abnormal metabolic activity in the soft tissues of the lower extremities. BONES: No abnormal metabolic activity in the visualized skeleton. ADDITIONAL CT FINDINGS: No additional significant findings on the noncontrast CT images. OTHER: No other significant findings. IMPRESSION: Ground-glass opacity in the left upper lobe is not hypermetabolic, however follow-up for these lesions she should be based on Fleischner criteria for sub solid nodules. COMMENT: Fleischner Criteria for Ground Glass Nodules: >6-8mm part solid single nodule: CT 3-6 mo to confirm persistence, if unchanged solid component remai ns < 6mm annual CT should be performed for 5 yrs. TECHNICAL DOCUMENTATION: JOB ID: [id number]- All Rights Reserved Reading location - IP/workstation name: [email or web address]
== END ==
LOC: RAD 18:32
DX: R91.1 Solitary pulmonary nodule (principal)
CPT/HCPCS: 78815; A9552

== ENCOUNTER 2017-12-11 17:15 | Inpatient (IN) | payer OTHER ==
--- NOTE | 2017-12-11 17:32 | ER Document Report ---
ED Neuro Symptoms/Deficit - General Mode of Arrival: Ambulatory Information source: Patient TRAVEL OUTSIDE OF THE [place] IN LAST 30 DAYS: No <CHERYL ABRAHAM - Last Filed: 12/11/17 23:50> <SABRINA BURLESON - Last Filed: 12/11/17 23:54> - General Stated Complaint: POSSIBLE STROKE Time Seen by Provider: 12/11/17 17:20 Notes: Patient is a 42-year-old male who presents to the emergency department today with complaints of "not acting appropriately" according to the nephew at bedside. Nephew at bedside states that the patient woke up from a 4 hour nap and was confused and not acting like himself. Nephew states there was concern from EMS that the patient may be having a stroke secondary to unequal pupils. Patient is very slow to respond throughout exam. Entire history is being given by nephew at bedside in the past. Nephew states he does not know if the patient took any recreational drugs prior to arrival today. (CHERYL ABRAHAM) - Related Data Allergies/Adverse Reactions: No Known Drug Allergies Allergy (Verified 11/09/17 17:26) Past Medical History - General Information source: [facility] Records - Social History Smoking Status: Never Smoker Cigarette use (# per day): No Frequency of alcohol use: None Drug Abuse: None Lives with: Family Family History: Reviewed & Not Pertinent - Past Medical History Cardiac Medical History: Reports: Hx Hypertension - no meds Past Surgical History: Reports: Hx Orthopedic Surgery - back <CHERYL ABRAHAM - Last Filed: 12/11/17 23:50> Review of Systems - Review of Systems -: Yes ROS unobtainable due to patient's medical condition <CHERYL ABRAHAM - Last Filed: 12/11/17 23:50> Physical Exam <CHERYL ABRAHAM - Last Filed: 12/11/17 23:50> <SABRINA BURLESON - Last Filed: 12/11/17 23:54> - Vital signs Vitals: Resp 13 12/11/17 17:24 - Notes Notes: PHYSICAL EXAM GENERAL: Somnolent, falls asleep during exam. Able to provide no history. No acute distress. HEAD: Normocephalic, atraumatic. EYES: Anisocoria- right pupil slightly larger than left, round, and reactive to light. Extraocular movements intact. ENT: Oral mucosa moist, tongue midline. NECK: Full range of motion. Supple. Trachea midline. LUNGS: Clear to auscultation bilaterally, no wheezes, rales, or rhonchi. No respiratory distress. HEART: Mild tachycardia, regular rhythm. No murmurs, gallops, or rubs. ABDOMEN: Soft, non-tender. Non-distended. Bowel sounds present in all 4 quadrants. No guarding, rigidity, or rebound. EXTREMITIES: Moves all 4 extremities spontaneously. No edema, radial and dorsalis pedis pulses 2/4 bilaterally. No cyanosis. NEUROLOGICAL: Completely disoriented, unable to answer any orientation questions. Follows commands, able to wiggle toes and move fingers on command. No facial droop. PSYCH: Somnolent. SKIN: Warm, dry, normal turgor. No rashes or lesions noted. (CHERYL ABRAHAM) Course - Laboratory Result Diagrams: 12/11/17 17:30 12/11/17 17:30 <CHERYL ABRAHAM - Last Filed: 12/11/17 23:50> - Laboratory Result Diagrams: 12/11/17 17:30 12/11/17 17:30 <SABRINA BURLESON - Last Filed: 12/11/17 23:54> - Re-evaluation Re-evalutation: 12/11/17 20:55 Patient is now awake and alert. States he took Phenibut which he ordered online which he read would help with anxiety. (CHERYL ABRAHAM) 12/11/17 22:29 CBC shows leukocytosis of 13.3, elevated platelets of 456, coags unremarkable, chemistries show slightly elevated potassium at 5.1 acute renal failure with a creatinine 1.55, lactic acid normal at 1.4, ammonia normal at 20.3, troponin indeterminate 0.035, this was repeated 3 hours later and down trended to 0.033, minimally elevated CK at 294 and then 246, urine drug screen unremarkable, salicylates, acetaminophen and alcohol all undetectable, chest x-ray and head CT negative, EKG does not show any blocks or delays. After quite some time the patient wakes up enough to admit taking Phenergan but which is a prescription medication available in [place] that one can take for anxiety, patient states he first took it today. I did consult with [facility] and they agree that the patient should be observed overnight as this can be quite a long-acting overdose, it is treated similar to lead to benzodiazepines and given supportive care. Discussed with the hospitalist Dr. Rai who agrees to admit the patient to her service on the telemetry care unit. Patient has improved, can tell me where he is but has continued repetitive questioning and cannot tell me what year it is and falls asleep easily. Currently able to be awakened with painful stimuli. No indication for intubation at this time. (SABRINA BURLESON) - Vital Signs Vital signs: Temp Pulse Resp BP Pulse Ox 97.7 F 12 162/99 H 99 12/11/17 17:49 12/11/17 23:01 12/11/17 23:01 12/11/17 23:01 - Laboratory Laboratory results interpreted by me: 12/11/17 12/11/17 12/11/17 17:29 17:30 17:30 WBC 13.3 H RDW 15.0 H Plt Count 456 H Absolute Neutrophils 9.1 H APTT 22.9 L Potassium Creatinine Est GFR (Non-Af Amer) Glucose POC Glucose 163 H Creatine Kinase Salicylates Acetaminophen 12/11/17 12/11/17 12/11/17 17:30 17:30 20:25 WBC RDW Plt Count Absolute Neutrophils APTT Potassium 5.1 H Creatinine 1.55 H Est GFR (Non-Af Amer) 49 L Glucose 149 H POC Glucose Creatine Kinase 294 H 246 H Salicylates < 1.0 L Acetaminophen < 10 L - EKG Interpretation by Me Additional EKG results interpreted by me: 12/11/17 22:33 EKG shows sinus rhythm at a rate of 81, normal axis, normal intervals, no ST segment elevations or depressions, no T-wave inversions, significant baseline artifact due to movement. (SABRINA BURLESON) Critical Care Note - Critical Care Note Total time excluding time spent on procedures (mins): 35 <SABRINA BURLESON - Last Filed: 12/11/17 23:54> Discharge <CHERYL ABRAHAM - Last Filed: 12/11/17 23:50> - Discharge Admitting Provider: Hospitalist - [facility] Unit Admitted: Telemetry <SABRINA BURLESON - Last Filed: 12/11/17 23:54> - Discharge Clinical Impression: Elevated blood pressure reading Altered mental status Qualifiers: Altered mental status type: disorientation Qualified Code(s): R41.0 - Disorientation, unspecified Adverse drug reaction Qualifiers: Encounter type: initial encounter Qualified Code(s): T88.7XXA - Unspecified adverse effect of drug or medicament, initial encounter Acute renal failure Qualifiers: Acute renal failure type: unspecified Qualified Code(s): N17.9 - Acute kidney failure, unspecified Condition: Fair Disposition: ADMITTED INPATIENT Scribe Attestation: 12/11/17 23:54 I personally performed the services described in the documentation, reviewed and edited the documentation which was dictated to the scribe in my presence, and it accurately records my words and actions. (SABRINA BURLESON) Scribe Documentation - Scribe Written by Scribe:: Erin Swanson, 12/11/2017 2321 acting as scribe for :: Kia <CHERYL ABRAHAM - Last Filed: 12/11/17 23:50>
[2017-12-11] MEDS ORDERED: NORMAL SALINE 1000 ML 1,000 ML IV ONE ×2 (17:33→19:41)
--- NOTE | 2017-12-11 17:38 | RADIOLOGY REPORT (SQ) ---
EXAM DESCRIPTION: CT HEAD WITHOUT COMPLETED DATE/TIME: 12/11/2017 5:21 pm REASON FOR STUDY: bed 3 stroke alert COMPARISON: None. TECHNIQUE: Axial images acquired through the brain without intravenous contrast. Images reviewed wi th bone, brain and subdural windows. Images stored on PACS. All CT scanners at this facility use dose modulation, iterative reconstruction, and/or weight based d osing when appropriate to reduce radiation dose to as low as reasonably achievable (ALARA). [facility]: Dose Right [facility]: CareDose [facility]: Dose Right [facility]: Teradose 4D [facility]: [employer] RADIATION DOSE: mGy. LIMITATIONS: None. FINDINGS: VENTRICLES: Normal size and contour. CEREBRUM: No masses. No hemorrhage. No midline shift. No evidence for acute infarction. Normal gra y/white matter differentiation. No areas of low density in the white matter. CEREBELLUM: No masses. No hemorrhage. No alteration of density. No evidence for acute infarction. EXTRAAXIAL SPACES: No fluid collections. No masses. ORBITS AND GLOBE: No intra- or extraconal masses. Normal contour of globe without masses. CALVARIUM: No fracture. PARANASAL SINUSES: No fluid or mucosal thickening. SOFT TISSUES: No mass or hematoma. OTHER: No other significant finding. IMPRESSION: NORMAL BRAIN CT WITHOUT CONTRAST. EVIDENCE OF ACUTE STROKE: NO. COMMENT: Discussed with Dr. Adam via telephone at 1830 hours. Quality ID # [id number]: Final reports with documentation of one or more dose reduction techniques (e.g., Au tomated exposure control, adjustment of the mA and/or kV according to patient size, use of iterative reconstruction technique) TECHNICAL DOCUMENTATION: JOB ID: [id number] [employer]- All Rights Reserved Reading location - IP/workstation name: [email or web address]
[2017-12-11 17:40] LABS: ABSOLUTE BASOPHILS # (AUTO) 0.1 10^3/uL (0.0-0.2); ABSOLUTE EOSINOPHILS # (AUTO) 0.2 10^3/uL (0.0-0.6); ABSOLUTE MONOCYTES (AUTO) 0.9 10^3/uL (0.1-1.4); ABSOLUTE NEUT (AUTO) 9.1 10^3/uL (1.7-8.2); BASOPHILS % (AUTO) 0.5 % (0-2); EOSINOPHILS % (AUTO) 1.2 % (0-6); HEMATOCRIT 43.9 % (37.9-51.0); HEMOGLOBIN 14.9 g/dL (13.5-17.0); MEAN CORPUSCULAR HEMOGLOBIN 29.8 pg (27.0-33.4); MEAN CORPUSCULAR HGB CONC 33.9 g/dL (32.0-36.0); MEAN CORPUSCULAR VOLUME 88 fl (80-97); MONOCYTES % (AUTO) 6.7 % (3-13); PLATELET COUNT 456 10^3/uL (150-450); RED BLOOD COUNT 4.99 10^6/uL (4.35-5.55); SEGMENTED NEUTROPHILS % (AUTO) 68.6 % (42-78); TOTAL CELLS COUNTED % (AUTO) 100 %; WHITE BLOOD COUNT 13.3 10^3/uL (4.0-10.5)
--- NOTE | 2017-12-11 17:44 | RADIOLOGY REPORT (SQ) ---
EXAM DESCRIPTION: CHEST SINGLE VIEW COMPLETED DATE/TIME: 12/11/2017 5:23 pm REASON FOR STUDY: bed 3 stroke alert COMPARISON: 11/09/2017 EXAM PARAMETERS: NUMBER OF VIEWS: One view. TECHNIQUE: Single frontal radiographic view of the chest acquired. RADIATION DOSE: NA LIMITATIONS: None. FINDINGS: LUNGS AND PLEURA: No opacities, masses or pneumothorax. No pleural effusion. MEDIASTINUM AND HILAR STRUCTURES: No masses. Contour normal. HEART AND VASCULAR STRUCTURES: Heart normal in size. Normal vasculature. BONES: No acute findings. HARDWARE: None in the chest. OTHER: No other significant finding. IMPRESSION: NO ACUTE RADIOGRAPHIC FINDING IN THE CHEST. TECHNICAL DOCUMENTATION: JOB ID: [id number] [employer]- All Rights Reserved Reading location - IP/workstation name: [email or web address]
[2017-12-11 17:45] LABS: INTERNATIONAL RATION (INR) 0.81; PARTIAL THROMBOPLASTIN TIME 22.9 SEC (23.5-35.8); PROTHROMBIN TIME 11.8 SEC (11.4-15.4)
[2017-12-11 18:06] LABS: ALANINE AMINOTRANSFERASE 48 U/L (21-72); ALBUMIN 4.5 g/dL (3.5-5.0); ALKALINE PHOSPHATASE 49 U/L (38-126); ANION GAP 16 (5-19); ASPARTATE AMINO TRANSFERASE 34 U/L (17-59); BILIRUBIN,DIRECT 0.4 mg/dL (0.0-0.4); BILIRUBIN,TOTAL 0.4 mg/dL (0.2-1.3); BLOOD UREA NITROGEN 19 mg/dL (7-20); CALCIUM 9.9 mg/dL (8.4-10.2); CARBON DIOXIDE 26 mmol/L (22-30); CHLORIDE 101 mmol/L (98-107); CREATINE KINASE 294 U/L (55-170); GLUCOSE 149 mg/dL (75-110); POTASSIUM 5.1 mmol/L (3.6-5.0); SODIUM 142.5 mmol/L (137-145); TOTAL PROTEIN 7.5 g/dL (6.3-8.2)
[2017-12-11 18:09] LABS: ACETAMINOPHEN < 10 ug/mL (10-30); ALCOHOL < 10 mg/dL (NONE DETECTED); SALICYLATE < 1.0 mg/dL (2.0-20.0)
[2017-12-11 18:16] LABS: CREATINE KINASE MB 3.92 ng/mL (<4.55)
[2017-12-11 18:23] LABS: TROPONIN I 0.035 ng/mL
[2017-12-11 18:42] LABS: URINE AMPHETAMINES SCREEN NEGATIVE; URINE BARBITURATES SCREEN NEGATIVE; URINE BENZODIAZEPINES SCREEN NEGATIVE; URINE COCAINE SCREEN NEGATIVE; URINE MARIJUANA (THC) SCREEN NEGATIVE; URINE METHADONE SCREEN NEGATIVE; URINE PHENCYCLIDINE SCREEN NEGATIVE
[2017-12-11 21:00] LABS: CREATINE KINASE MB 3.6 ng/mL (<4.55); TROPONIN I 0.033 ng/mL
--- NOTE | 2017-12-11 21:40 | EKG REPORT ---
SEVERITY:- NORMAL ECG - SINUS RHYTHM : Confirmed by: Wilfrid Quinones 11-Dec-2017 21:39:52
[2017-12-11] MEDS ORDERED: PROMETHAZINE HCL INJ 25 MG/1 ML VIAL IV PRN (23:46)
[2017-12-11] MEDS ORDERED: ACETAMINOPHEN 325 MG TABLET PO PRN (23:46)
[2017-12-11] MEDS ORDERED: ALBUTEROL SULFATE 0.083% NEB 2.5 MG/3 ML AMPUL NEB PRN (23:46)
[2017-12-12] MEDS: NORMAL SALINE 1000 ML 1,000 ML IV PRN ×3 (01:44→13:10)
--- NOTE | 2017-12-12 04:09 | PDOC H&P ---
History of Present Illness Patient complains of: Altered mental status since 4 PM per nephew. History of Present Illness: CHUY ROMERO is a 42 year old male with unknow medical history was admitted with above-mentioned complaint. The patient is currently still confused and his nephew at bedside was unable to provide any significant history. So most of the history was obtained from the ED physician and notes. The patient currently seems to understand and follow simple commands intermittently. He sometimes was giving the same answer to two completely different questions but he recognized his nephew's name. According to the ED physician's note, EMS was called and there was concern that the patient may have had a stroke since he had unequal pupils and he was confused. He apparently took "phenibut" which is an anxiety medication he brought over the Internet (equivalent to benzodiazepine). There was no report of any worsening shortness of breath, vomiting, incontinence or focal weakness. There was also no report of any alcohol or recreational drugs use. In the ED, his temperature was 97.7, heart rate 85, respiratory rate 18, blood pressure 156/97 with oxygen saturation of 96% on room air. His WBC was 13.3 and his hemoglobin was 14.9. His liver enzymes were within normal limits. His urine drug screen and alcohol level were negative. A chest x-ray and head CAT scan were both unremarkable. He received 2 L of normal saline. Past Medical History Medical History: Other - According to previous records. Cardiac Medical History: Reports: Hypertension - no meds Past Surgical History Past Surgical History: Reports: Orthopedic Surgery - back surgery x1. left knee surgery. Social History Lives with: Family Smoking Status: Never Smoker Frequency of Alcohol Use: None Hx Recreational Drug Use: No - Advance Directive Resuscitation Status: Full Code Family History Family History: Other - unable to obtain at this time. Parental Family History Reviewed: No - unable to obtain at this time. Children Family History Reviewed: No Sibling(s) Family History Reviewed.: No Medication/Allergy Home Medications: No Home Medications 11/09/17 Allergies/Adverse Reactions: No Known Drug Allergies Allergy (Verified 11/09/17 17:26) Review of Systems ROS unobtainable: Other - Unable to obtain at this time given patient's mental status. Physical Exam Vital Signs: Temp Pulse Resp BP Pulse Ox 97.7 F 12 162/99 H 99 12/11/17 17:49 12/11/17 23:01 12/11/17 23:01 12/11/17 23:01 Intake & Output 12/10/17 12/11/17 12/12/17 05:59 06:59 06:59 Weight 104.4 kg General appearance: PRESENT: no acute distress, well-developed, well-nourished Head exam: PRESENT: atraumatic, normocephalic Eye exam: PRESENT: conjunctiva pink, PERRLA. ABSENT: scleral icterus Mouth exam: PRESENT: moist, tongue midline Neck exam: PRESENT: full ROM Respiratory exam: PRESENT: clear to auscultation jinny. ABSENT: rales, rhonchi, wheezes Cardiovascular exam: PRESENT: RRR, +S1, +S2 Pulses: PRESENT: normal dorsalis pedis pul GI/Abdominal exam: PRESENT: normal bowel sounds, soft. ABSENT: distended, rebound, tenderness Rectal exam: PRESENT: deferred Neurological exam: PRESENT: alert, altered, other - Limited exam. Oriented to person and place (hospital), time (he knew the month after prompting). Skin exam: PRESENT: dry, warm. ABSENT: erythema, rash Results Laboratory Results: 12/11/17 17:30 12/11/17 17:30 12/11/17 12/11/17 12/11/17 17:30 17:30 17:40 WBC 13.3 H RBC 4.99 Hgb 14.9 Hct 43.9 MCV 88 MCH 29.8 MCHC 33.9 RDW 15.0 H Plt Count 456 H Seg Neutrophils % 68.6 Lymphocytes % 23.0 Monocytes % 6.7 Eosinophils % 1.2 Basophils % 0.5 Absolute Neutrophils 9.1 H Absolute Lymphocytes 3.0 Absolute Monocytes 0.9 Absolute Eosinophils 0.2 Absolute Basophils 0.1 Sodium 142.5 Potassium 5.1 H Chloride 101 Carbon Dioxide 26 Anion Gap 16 BUN 19 Creatinine 1.55 H Est GFR ( Amer) > 60 Est GFR (Non-Af Amer) 49 L Glucose 149 H Lactic Acid 1.4 Calcium 9.9 Total Bilirubin 0.4 AST 34 ALT 48 Alkaline Phosphatase 49 Ammonia Total Protein 7.5 Albumin 4.5 12/11/17 17:40 WBC RBC Hgb Hct MCV MCH MCHC RDW Plt Count Seg Neutrophils % Lymphocytes % Monocytes % Eosinophils % Basophils % Absolute Neutrophils Absolute Lymphocytes Absolute Monocytes Absolute Eosinophils Absolute Basophils Sodium Potassium Chloride Carbon Dioxide Anion Gap BUN Creatinine Est GFR ( Amer) Est GFR (Non-Af Amer) Glucose Lactic Acid Calcium Total Bilirubin AST ALT Alkaline Phosphatase Ammonia 20.3 Total Protein Albumin 12/11/17 12/11/17 12/11/17 17:30 17:30 20:25 Creatine Kinase 294 H 246 H CK-MB (CK-2) 3.92 Troponin I 0.035 12/11/17 20:25 Creatine Kinase CK-MB (CK-2) 3.60 Troponin I 0.033 EKG Comments: Twelve-lead EKG: Sinus rhythm, ventricular rate 80, axis +60, no acute changes. Similar when compared to a previous 12-lead EKG done on 11/10/2017. Impressions: Chest X-Ray 12/11/17 17:16 IMPRESSION: NO ACUTE RADIOGRAPHIC FINDING IN THE CHEST. Head CT 12/11/17 17:16 IMPRESSION: NORMAL BRAIN CT WITHOUT CONTRAST. EVIDENCE OF ACUTE STROKE: NO. Assessment & Plan - Diagnosis (1) Acute encephalopathy Is this a current diagnosis for this admission?: Yes Plan: Unclear etiology, possibly secondary to "phenibut". CAT scan head, alcohol level, salicylate and Tylenol in addition to UDS were all negative. Poison control was contacted by the ED physician who advised supportive care since this medication apparently is similar to a long-acting benzodiazepine. We will check ammonia level, UA, B12, folate and TSH. We will also check head MRI and EEG and continue to monitor overnight. (2) ALTAF (acute kidney injury) Is this a current diagnosis for this admission?: Yes Plan: His creatinine was 0.94 on 11/09/2017. We will continue IV hydration and repeat BMP in a.m. (3) Leukocytosis Is this a current diagnosis for this admission?: Yes Plan: and thrombocytosis, possibly secondary to hemoconcentration. CXR negative. Will check UA and treat as indicated. (4) Hyperkalemia Is this a current diagnosis for this admission?: Yes Plan: Renny repeat BMP in AM. - Time Time Spent: 50 to 70 Minutes Anticipated discharge: Home - Inpatient Certification Based on my medical assessment, after consideration of the patient's comorbidities, presenting symptoms, or acuity I expect that the services needed warrant INPATIENT care.: Yes I certify that my determination is in accordance with my understanding of Medicare's requirements for reasonable and necessary INPATIENT services [42 CFR 412.3e].: Yes
[2017-12-12] MEDS: HEPARIN SOD (PORCINE) 5,000 UNIT/ML 1 ML SYRINGE SUBCUT SCH ×3 (06:08→21:07)
[2017-12-12] MEDS: LANSOPRAZOLE 30 MG TAB.RAP.DR PO SCH (06:08)
[2017-12-12 06:35] LABS: APPEARANCE,URINE CLEAR; BILIRUBIN,URINE NEGATIVE (NEGATIVE); COLOR,URINE YELLOW; GLUCOSE, URINE NEGATIVE (NEGATIVE); KETONES,URINE NEGATIVE (NEGATIVE); LEUKOCYTE ESTERASE,URINE NEGATIVE (NEGATIVE); NITRITE,URINE NEGATIVE (NEGATIVE); PROTEIN,URINE NEGATIVE (NEGATIVE); URINE SPECIFIC GRAVITY 1.023; UROBILINOGEN,URINE NEGATIVE mg/dL (<2.0)
[2017-12-12 07:22] LABS: HEMATOCRIT 39.2 % (37.9-51.0); HEMOGLOBIN 13.1 g/dL (13.5-17.0); MEAN CORPUSCULAR HEMOGLOBIN 29.5 pg (27.0-33.4); MEAN CORPUSCULAR HGB CONC 33.3 g/dL (32.0-36.0); MEAN CORPUSCULAR VOLUME 89 fl (80-97); PLATELET COUNT 388 10^3/uL (150-450); RED BLOOD COUNT 4.43 10^6/uL (4.35-5.55); RED CELL DISTRIBUTION WIDTH 15.1 % (11.5-14.0); WHITE BLOOD COUNT 10.8 10^3/uL (4.0-10.5)
[2017-12-12 07:38] LABS: ANION GAP 12 (5-19); BLOOD UREA NITROGEN 16 mg/dL (7-20); CALCIUM 9.3 mg/dL (8.4-10.2); CARBON DIOXIDE 25 mmol/L (22-30); CHLORIDE 107 mmol/L (98-107); GLUCOSE 138 mg/dL (75-110); POTASSIUM 4.4 mmol/L (3.6-5.0); SODIUM 144.1 mmol/L (137-145)
[2017-12-12] MEDS ORDERED: FENTANYL CITRATE INJ/PF 100 MCG/2 ML AMPUL IV ONE ×2 (08:00→08:30)
[2017-12-12] MEDS: NITROGLYCERIN 0.4 MG/TAB 25 TAB/BOTTLE SL PRN ×3 (08:37→09:46)
[2017-12-12 08:40] LABS: FOLATE 12.7 ng/mL (>2.76)
[2017-12-12] MEDS ORDERED: LORAZEPAM INJ 2 MG/1 ML VIAL IV ONE (09:05)
[2017-12-12] MEDS ORDERED: NORMAL SALINE 1000 ML 1,000 ML IV ONE (09:30)
--- NOTE | 2017-12-12 10:35 | RADIOLOGY REPORT (SQ) ---
EXAM DESCRIPTION: CHEST SINGLE VIEW COMPLETED DATE/TIME: 12/12/2017 10:20 am REASON FOR STUDY: chest pain COMPARISON: Plain films of the chest dated 12/11/2017. CT-CTA chest examination dated 11/09/2017. EXAM PARAMETERS: NUMBER OF VIEWS: One view. TECHNIQUE: Single frontal radiographic view of the chest acquired. RADIATION DOSE: NA LIMITATIONS: None. FINDINGS: LUNGS AND PLEURA: Stable appearing slightly ill-defined nodule in the left upper lobe (pl ease see CT chest report dated 11/09/20170. No acute pulmonary consolidation. No pneumothorax or pleu ral effusion. MEDIASTINUM AND HILAR STRUCTURES: No masses. Contour normal. HEART AND VASCULAR STRUCTURES: Heart normal in size. Normal vasculature. BONES: No acute findings. HARDWARE: EKG wires overlie the anterior chest wall. OTHER: No other significant finding. IMPRESSION: 1 No acute pulmonary findings. 2. Stable slightly ill-defined nodule in the periphery of the left upper lobe: Please see CT-CTA ches t report dated 11/09/2017. TECHNICAL DOCUMENTATION: JOB ID: [id number] [employer]- All Rights Reserved Reading location - IP/workstation name: [email or web address]
--- NOTE | 2017-12-12 12:30 | Progress Note ---
Provider Note Provider Note: This provider was called by nursing staff because the patient was complaining of chest tightness. The patient began complaining of midsternal chest tightness when the EEG was being set up in his room. STAT EKG was done showing normal sinus rhythm, no evidence of acute infarct or ischemia. Nurse administered 3 SL nitro and 25 mcg of fentanyl. The patient stated that his chest tightness was mildly relieved. Additionally, the patient received 2 mg of Ativan IV. Following medication administration, the patient reported that he was chest pain-free. Chest x-ray benign. Troponin pending.
--- NOTE | 2017-12-12 12:48 | RADIOLOGY REPORT (SQ) ---
EXAM DESCRIPTION: MRI HEAD WITHOUT COMPLETED DATE/TIME: 12/12/2017 11:56 am REASON FOR STUDY: confusion COMPARISON: Brain CT scan dated 12/11/2017 TECHNIQUE: Multiplanar imaging includes non-contrasted T1, T2, FLAIR, and diffusion with ADC map seq uences. Images stored on PACS. LIMITATIONS: None. FINDINGS: ANATOMY: No anomalies. Normal vascular flow voids. Pituitary fossa normal. CSF SPACES: Normal in size and contour. No hemorrhage. CEREBRUM: Sulci and gyri normal in size and contour. Normal white matter signal on FLAIR imaging. No evidence of hemorrhage, mass, or extraaxial fluid collection. POSTERIOR FOSSA: No signal alteration. No hemorrhage. No edema, masses or mass effect. Internal alden tory canals, cerebello-pontine angles, mastoids normal. DIFFUSION IMAGING: Negative for acute or sub-acute infarction. ORBITS: No masses. Globes normal. PARANASAL SINUSES: No fluid levels. Mucosa normal. OTHER: No other significant finding. IMPRESSION: NORMAL MRI OF THE BRAIN WITHOUT INTRAVENOUS GADOLINIUM CONTRAST. EVIDENCE OF ACUTE STROKE: NO. TECHNICAL DOCUMENTATION: JOB ID: [id number] [employer]- All Rights Reserved Reading location - IP/workstation name: [email or web address]
--- NOTE | 2017-12-12 13:17 | EKG REPORT ---
SEVERITY:- BORDERLINE ECG - SINUS RHYTHM BORDERLINE T ABNORMALITIES, INFERIOR LEADS : Confirmed by: Jayden Vick MD 12-Dec-2017 13:17:01
--- NOTE | 2017-12-12 14:57 | EEG PRO FEE REPORT ---
EEG INTERPRETATION PATIENT NAME: CHUY ROMERO ROOM#: [id number] ORDER#: [id number] DATE OF STUDY: 12/12/2017 : 1975 REFERRING MD: TAMELA CASILLAS M.D. DIAGNOSIS: Acute encephalopathy REPORT The background activity consists of some fine superimposed motion artifact on a background mostly 7 Hz theta to 8 Hz alpha. As the record attenuates somewhat the record slows slightly but no clear focal slowing, amplitude asymmetry, or epileptiform discharges are seen; there is frequent motion artifact noted. IMPRESSION Normal EEG INTERPRETING PHYSICIAN: MACIEJ COTO M.D. /: MTEFFT TT: 1450 ID: [id number] /: [id number] TD: 1329 JOB: [id number] cc:Norris TAYLOR M.D. >
[2017-12-12] MEDS ORDERED: LORAZEPAM INJ 2 MG/1 ML VIAL IV PRN (18:06)
--- NOTE | 2017-12-12 18:26 | PDOC PROGRESS REPORT ---
Subjective Progress Note for:: 12/12/17 Subjective:: CHUY ROMERO is a 42-year-old male with a past medical history of anxiety and depression. He presented to the hospital for confusion. The nephew reports that the patient has been taking a medication called "phenibut" which is an anti -anxiety medication is ordered over the Internet. The patient initially presented to the ER very confused, and unable to follow simple commands. Poison control was notified, they recommend supportive care. The patient was seen this afternoon on rounds. He was awake, alert, and participatory in care however the patient did not understand why he was brought to the hospital. He did not remember how he got to the hospital or the time he spent in the emergency primary. The patient admits to taking the medication "phenibut" for anxiety because he does not have health insurance and cannot afford [id number] cost for Xanax. Of note, the patient was seen early this morning for complaint of chest pain ( see earlier provider note). It was believed to be non-cardiac related, and secondary to the patient's anxiety. The patient stated he felt overwhelmed when the bioprocessing manufacturing technician began setting up for the procedure. Reason For Visit: ALTERED MENTAL STATUS Physical Exam Vital Signs: Temp Pulse Resp BP Pulse Ox 98.1 F 94 16 131/63 H 100 12/12/17 15:27 12/12/17 15:27 12/12/17 15:27 12/12/17 15:27 12/12/17 15:27 Intake & Output 12/11/17 12/12/17 12/13/17 06:59 06:59 06:59 Intake Total 350 2550 Balance 350 2550 Weight 100.8 kg Results Laboratory Results: 12/12/17 06:30 12/12/17 06:30 12/11/17 12/12/17 12/12/17 23:59 06:00 06:30 WBC 10.8 H RBC 4.43 Hgb 13.1 L Hct 39.2 MCV 89 MCH 29.5 MCHC 33.3 RDW 15.1 H Plt Count 388 Sodium Potassium Chloride Carbon Dioxide Anion Gap BUN Creatinine Est GFR ( Amer) Est GFR (Non-Af Amer) Glucose Calcium Magnesium Ammonia 23.6 Vitamin B12 Folate Urine Color YELLOW Urine Appearance CLEAR Urine pH 7.0 Ur Specific [place] 1.023 Urine Protein NEGATIVE Urine Glucose (UA) NEGATIVE Urine Ketones NEGATIVE Urine Blood NEGATIVE Urine Nitrite NEGATIVE Ur Leukocyte Esterase NEGATIVE Urine WBC (Auto) 1 Urine RBC (Auto) 4 12/12/17 12/12/17 06:30 06:30 WBC RBC Hgb Hct MCV MCH MCHC RDW Plt Count Sodium 144.1 Potassium 4.4 Chloride 107 Carbon Dioxide 25 Anion Gap 12 BUN 16 Creatinine 0.94 Est GFR ( Amer) > 60 Est GFR (Non-Af Amer) > 60 Glucose 138 H Calcium 9.3 Magnesium 2.2 Ammonia Vitamin B12 669.0 Folate 12.70 Urine Color Urine Appearance Urine pH Ur Specific [place] Urine Protein Urine Glucose (UA) Urine Ketones Urine Blood Urine Nitrite Ur Leukocyte Esterase Urine WBC (Auto) Urine RBC (Auto) 12/11/17 12/12/17 12/12/17 23:59 06:30 12:25 Troponin I 0.032 0.031 0.027 Impressions: Head CT 12/11/17 17:16 IMPRESSION: NORMAL BRAIN CT WITHOUT CONTRAST. EVIDENCE OF ACUTE STROKE: NO. Chest X-Ray 12/12/17 08:00 IMPRESSION: 1 No acute pulmonary findings. 2. Stable slightly ill-defined nodule in the periphery of the left upper lobe: Please see CT-CTA chest report dated 11/09/2017. Head MRI 12/12/17 11:55 IMPRESSION: NORMAL MRI OF THE BRAIN WITHOUT INTRAVENOUS GADOLINIUM CONTRAST. EVIDENCE OF ACUTE STROKE: NO. Assessment & Plan - Diagnosis (1) Altered mental status Qualifiers: Altered mental status type: disorientation Qualified Code(s): R41.0 - Disorientation, unspecified Is this a current diagnosis for this admission?: Yes Plan: Improving. The patient seen this morning and he was alert and oriented, however he did not understand why he was in the hospital. He did not remember his time in the emergency department. The patient admits to taking the medication 'phenibut' for his anxiety. He states that the last time he purchased this medication was from different online company and did not have these symptoms. EEG completed this morning. Continue IV fluids. Barring any complications, the patient can likely be discharged home tomorrow. (2) Chest pain Qualifiers: Chest pain type: unspecified Qualified Code(s): R07.9 - Chest pain, unspecified Is this a current diagnosis for this admission?: Yes Plan: Today at 0800 the patient was complaining of midsternal chest tightness. The pain was not reproducible by palpation but he states that it was exacerbated by deep inhalation. EKG shows normal sinus rhythm, no evidence of acute ischemia or infarction. Chest x-ray negative. Patient given 3 sublingual nitro, 25 mcg of fentanyl, and 2 mg of Ativan. After receiving the medication the patient stated that he was chest pain-free. We will follow up on serial troponins initiated after this morning's event have all been negative. I do not believe that this chest pain is cardiac in nature, I believe that it is related to his anxiety. Standing order for 2 mg Ativan IV every 6 hours PRN anxiety. (3) Anxiety Is this a current diagnosis for this admission?: Yes Plan: The patient endorses a history of anxiety. States that he is currently taking Lexapro, which is prescribed by a provider at the [facility]. Patient states that this does not control his anxiety, which is why he purchased the online medication 'phenibut.' The patient states he does not have health insurance and cannot pay out of pocket for a Xanax prescription. Will reach out to discharge planning in an attempt to assist the patient in pain for an anti-anxiety prescription. - Time Time Spent with patient: 15-24 minutes Medications reviewed and adjusted accordingly: Yes Anticipated discharge: Home Within: within 24 hours - Inpatient Certification Based on my medical assessment, after consideration of the patient's comorbidities, presenting symptoms, or acuity I expect that the services needed warrant INPATIENT care.: Yes I certify that my determination is in accordance with my understanding of Medicare's requirements for reasonable and necessary INPATIENT services [42 CFR 412.3e].: Yes Medical Necessity: Risk of Complication if Not Cared For in Hospital - Plan Summary Plan Summary: Discharge home
[2017-12-13] MEDS: LANSOPRAZOLE 30 MG TAB.RAP.DR PO SCH (05:27)
[2017-12-13] MEDS: HEPARIN SOD (PORCINE) 5,000 UNIT/ML 1 ML SYRINGE SUBCUT SCH (05:29)
[2017-12-13 07:15] LABS: HEMATOCRIT 36.8 % (37.9-51.0); HEMOGLOBIN 12.4 g/dL (13.5-17.0); MEAN CORPUSCULAR HEMOGLOBIN 29.7 pg (27.0-33.4); MEAN CORPUSCULAR HGB CONC 33.6 g/dL (32.0-36.0); MEAN CORPUSCULAR VOLUME 88 fl (80-97); PLATELET COUNT 383 10^3/uL (150-450); RED BLOOD COUNT 4.16 10^6/uL (4.35-5.55); RED CELL DISTRIBUTION WIDTH 15.1 % (11.5-14.0); WHITE BLOOD COUNT 9.4 10^3/uL (4.0-10.5)
[2017-12-13 08:30] LABS: ANION GAP 6 (5-19); BLOOD UREA NITROGEN 11 mg/dL (7-20); CALCIUM 8.6 mg/dL (8.4-10.2); CARBON DIOXIDE 27 mmol/L (22-30); CHLORIDE 111 mmol/L (98-107); GLUCOSE 108 mg/dL (75-110); POTASSIUM 3.9 mmol/L (3.6-5.0); SODIUM 144.1 mmol/L (137-145)
[2017-12-13 08:59] VITALS: BP 140/79
--- NOTE | 2017-12-13 10:57 | PDOC DISCHARGE SUMMARY ---
General - Admit/Disc Date/PCP Admission Date/Primary Care Provider: 12/11/17 22:48 Discharge Date: 12/13/17 - Discharge Diagnosis (2) Altered mental status Is this a current diagnosis for this admission?: Yes (3) Anxiety Is this a current diagnosis for this admission?: Yes (4) Chest pain Is this a current diagnosis for this admission?: Yes - Additional Information Resuscitation Status: Full Code Discharge Diet: Regular Discharge Activity: Slowly Increase Activity, Walk Frequently Prescriptions: Alprazolam [Xanax 0.5 mg Tablet] 0.5 mg PO BIDP PRN #6 tab PRN Reason: Home Medications: Escitalopram Oxalate [Lexapro 10 mg Tablet] 20 mg PO DAILY 12/12/17 Lisinopril/Hydrochlorothiazide [Zestoretic 20-12.5 mg Tablet] 1 tab PO QPM 12/12 Ranitidine HCl [Zantac] 300 mg PO QPM 12/12/17 Acetaminophen [Tylenol 325 mg Tablet] 325 mg PO Q4HP PRN tablet 12/13/17 Alprazolam [Xanax 0.5 mg Tablet] 0.5 mg PO BIDP PRN #6 tab 12/13/17 History of Present Illness History of Present Illness: Per H&P by Dr. Rai: CHUY ROMERO is a 42 year old male with unknown medical history was admitted with above-mentioned complaint. The patient is currently still confused and his nephew at bedside was unable to provide any significant history. Most of the history was obtained from the ED physicians and notes. The patient currently seems to understand and follow simple commands intermittently. He sometimes was giving the same answer to 2 completely different questions but he recognizes his nephews name. According to the ED physician's note, EMS was called and there was concern that the patient may have had a stroke since he had unequal pupils and he was confused. He apparently took "phenibut" which is an anxiety medication he bought over the Internet (equivalent to benzodiazepine). There was no report of any worsening shortness of breath, vomiting, incontinence or focal weakness. There was also no report of any alcohol or recreational drug abuse. In the ED, his temperature was 97.7, heart rate 85, respiratory rate 18, blood pressure 156/97 with oxygen saturations of 96% on room air. His WBC was 13.3 and his hemoglobin was 14.9. His liver enzymes were within normal limits. His urine drug screen and alcohol level were negative. A chest x-ray and head CT were both unremarkable. He received 2 L of normal saline. Hospital Course Hospital Course: The patient was admitted for altered mental status secondary to a adverse medication reaction from a anxiety medications the patient brought through the Internet. The patient's workup included a chest x-ray, head CT, head MRI all of which were unremarkable, as well as, an EEG which was also normal. [place] poison control was contacted who recommended supportive care only. The patient's mental status gradually improved over the following 48 hours and he has now returned to his baseline mental status of alert and oriented 4. The patient did report midsternal chest pain that occurred while prepping for the EEG which he attributed to anxiety. The chest pain resolved following IV Ativan. Serial troponins were negative. There is low suspicion that his chest pain was cardiac in nature. He had no further occurrences of discomfort. On day of discharge, the patient is in stable condition. He is discharged to home with self-care and provided a prescription alprazolam 0.5 mg p.o. BID prn # 6. He is instructed to follow-up with his primary care provider within 1-2 weeks. Physical Exam Vital Signs: Temp Pulse Resp BP Pulse Ox 98.7 F 85 19 140/79 H 97 12/13/17 08:57 12/13/17 08:57 12/13/17 08:57 12/13/17 08:57 12/13/17 08:57 Intake & Output 12/12/17 12/13/17 12/14/17 06:59 06:59 06:59 Intake Total 350 3795 Balance 350 3795 Weight 100.8 kg General appearance: PRESENT: no acute distress, obese, well-developed, well- nourished Head exam: PRESENT: atraumatic, normocephalic Eye exam: PRESENT: conjunctiva pink, EOMI, PERRLA. ABSENT: scleral icterus Ear exam: PRESENT: normal external ear exam Mouth exam: PRESENT: moist, tongue midline Neck exam: ABSENT: carotid bruit, JVD, lymphadenopathy, thyromegaly Respiratory exam: PRESENT: clear to auscultation jinny, symmetrical, unlabored. ABSENT: rales, rhonchi, wheezes Cardiovascular exam: PRESENT: RRR, +S1, +S2. ABSENT: diastolic murmur, rubs, systolic murmur Pulses: PRESENT: normal dorsalis pedis pul Vascular exam: PRESENT: normal capillary refill GI/Abdominal exam: PRESENT: normal bowel sounds, soft. ABSENT: distended, guarding, mass, organolmegaly, rebound, tenderness Rectal exam: PRESENT: deferred Extremities exam: PRESENT: full ROM. ABSENT: calf tenderness, clubbing, pedal edema Neurological exam: PRESENT: alert, awake, oriented to person, oriented to place , oriented to time, oriented to situation, CN II-XII grossly intact. ABSENT: motor sensory deficit Psychiatric exam: PRESENT: appropriate affect, normal mood. ABSENT: homicidal ideation, suicidal ideation Skin exam: PRESENT: dry, intact, warm. ABSENT: cyanosis, rash Results Laboratory Results: 12/13/17 05:41 12/13/17 05:41 12/13/17 12/13/17 12/13/17 05:41 05:41 05:41 WBC 9.4 RBC 4.16 L Hgb 12.4 L Hct 36.8 L MCV 88 MCH 29.7 MCHC 33.6 RDW 15.1 H Plt Count 383 Sodium 144.1 Potassium 3.9 Chloride 111 H Carbon Dioxide 27 Anion Gap 6 BUN 11 Creatinine 0.88 Est GFR ( Amer) > 60 Est GFR (Non-Af Amer) > 60 Glucose 108 Calcium 8.6 Magnesium 2.3 12/11/17 12/12/17 12/12/17 23:59 06:30 12:25 Troponin I 0.032 0.031 0.027 12/12/17 12/13/17 18:31 00:26 Troponin I 0.028 0.019 Impressions: Head CT 12/11/17 17:16 IMPRESSION: NORMAL BRAIN CT WITHOUT CONTRAST. EVIDENCE OF ACUTE STROKE: NO. Chest X-Ray 12/12/17 08:00 IMPRESSION: 1 No acute pulmonary findings. 2. Stable slightly ill-defined nodule in the periphery of the left upper lobe: Please see CT-CTA chest report dated 11/09/2017. Head MRI 12/12/17 11:55 IMPRESSION: NORMAL MRI OF THE BRAIN WITHOUT INTRAVENOUS GADOLINIUM CONTRAST. EVIDENCE OF ACUTE STROKE: NO. Qualifiers - * PATEINT BEING DISCHARGED WITH ANY OF THE FOLLOWING DIAGNOSIS?: No
== END 2017-12-13 10:15 | disposition home or self-care (01) | DRG 52 ==
LOC: ER 17:15 → EH 22:48 → 3S 12-12 00:54 → 5 12-12 22:52
PROVIDERS: ADMIT Internal Medicine Geriatric Medicine; ATTEND Internal Medicine Geriatric Medicine
PROC: 3E0F73Z Introduction of Anti-inflammatory into Respiratory Tract, Via Natural or Artificial Opening (ICD-10-PCS; principal; 2017-12-12)
DX: G92 Toxic encephalopathy (principal); F41.9 Anxiety disorder, unspecified; T42.4X5A Adverse effect of benzodiazepines, initial encounter; N17.9 Acute kidney failure, unspecified; E87.5 Hyperkalemia; F32.9 Major depressive disorder, single episode, unspecified; I10 Essential (primary) hypertension
CPT/HCPCS: 36415; 51701; 70450; 70551; 71045; 80048; 80053; 80307; 81001; 82140; 82550; 82553; 82607; 82746; 82962; 83605; 83735; 84443; 84484; 85025; 85027; 85610; 85730; 93005; 93010; 94640; 95819; 96360; 96361; 99291; J1644; J2060; J2550; J3010; J7030

== ENCOUNTER 2017-12-23 19:35 | Emergency (ER) | payer OTHER ==
--- NOTE | 2017-12-23 20:46 | RADIOLOGY REPORT (SQ) ---
EXAM DESCRIPTION: CHEST SINGLE VIEW COMPLETED DATE/TIME: 12/23/2017 8:35 pm REASON FOR STUDY: sob COMPARISON: 12/12/2017 EXAM PARAMETERS: NUMBER OF VIEWS: One view. TECHNIQUE: Single frontal radiographic view of the chest acquired. RADIATION DOSE: NA LIMITATIONS: None. FINDINGS: LUNGS AND PLEURA: No opacities, masses or pneumothorax. No pleural effusion. MEDIASTINUM AND HILAR STRUCTURES: No masses. Contour normal. HEART AND VASCULAR STRUCTURES: Heart stable in size. Normal vasculature. BONES: No acute findings. HARDWARE: None in the chest. OTHER: No other significant finding. IMPRESSION: NO ACUTE RADIOGRAPHIC FINDING IN THE CHEST. NO SIGNIFICANT CHANGE FROM PRIOR STUDY. TECHNICAL DOCUMENTATION: JOB ID: [id number] [employer]- All Rights Reserved Reading location - IP/workstation name: [email or web address]
[2017-12-23 21:01] LABS: ABSOLUTE BASOPHILS # (AUTO) 0.1 10^3/uL (0.0-0.2); ABSOLUTE EOSINOPHILS # (AUTO) 0.2 10^3/uL (0.0-0.6); ABSOLUTE LYMPHOCYTES (AUTO) 2.3 10^3/uL (0.5-4.7); ABSOLUTE MONOCYTES (AUTO) 0.9 10^3/uL (0.1-1.4); ABSOLUTE NEUT (AUTO) 8.2 10^3/uL (1.7-8.2); BASOPHILS % (AUTO) 0.7 % (0-2); EOSINOPHILS % (AUTO) 1.3 % (0-6); HEMATOCRIT 38.4 % (37.9-51.0); HEMOGLOBIN 12.8 g/dL (13.5-17.0); LYMPHOCYTES % (AUTO) 19.9 % (13-45); MEAN CORPUSCULAR HEMOGLOBIN 28.7 pg (27.0-33.4); MEAN CORPUSCULAR HGB CONC 33.3 g/dL (32.0-36.0); MEAN CORPUSCULAR VOLUME 86 fl (80-97); MONOCYTES % (AUTO) 7.9 % (3-13); PLATELET COUNT 475 10^3/uL (150-450); RED BLOOD COUNT 4.46 10^6/uL (4.35-5.55); RED CELL DISTRIBUTION WIDTH 14.7 % (11.5-14.0); SEGMENTED NEUTROPHILS % (AUTO) 70.2 % (42-78); TOTAL CELLS COUNTED % (AUTO) 100 %; WHITE BLOOD COUNT 11.8 10^3/uL (4.0-10.5)
[2017-12-23 21:16] LABS: ANION GAP 14 (5-19); BLOOD UREA NITROGEN 25 mg/dL (7-20); CALCIUM 10.5 mg/dL (8.4-10.2); CARBON DIOXIDE 27 mmol/L (22-30); CHLORIDE 101 mmol/L (98-107); GLUCOSE 82 mg/dL (75-110); POTASSIUM 4.5 mmol/L (3.6-5.0); SODIUM 141.5 mmol/L (137-145)
--- NOTE | 2017-12-23 22:05 | ER Document Report ---
ED General - General Chief Complaint: Shortness Of Breath Stated Complaint: SHORTNESS OF BREATH Time Seen by Provider: 12/23/17 20:07 Notes: Patient is a 42-year-old male with a past medical history of hypertension and anxiety who presents with several days of intermittent chest pain and shortness of breath. Patient reports that he has had the symptoms were currently over the past several months and that they have been attributed to anxiety. He describes it as a left-sided stabbing, intermittent chest pain. He also notes that there is an intermittent heaviness to his chest. He denies any radiation of the pain. No associated vomiting, diaphoresis or syncope. He notes that when the pain is present he sometimes feels like it is difficult for him to breathe. He notes that he has been evaluated and hospitalized for this complaint with reassuring results. He has been following with his primary care doctor regarding this recurrent symptom. He denies any pain or symptoms at the time of my assessment. He does admit to ongoing uncontrolled anxiety. He has not noted that anything seems to improve or worsen his pain. TRAVEL OUTSIDE OF THE [place] IN LAST 30 DAYS: No - Related Data Allergies/Adverse Reactions: No Known Drug Allergies Allergy (Verified 11/09/17 17:26) Past Medical History - General Information source: Patient - Social History Smoking Status: Never Smoker Frequency of alcohol use: None Drug Abuse: None Lives with: Spouse/Significant other Family History: Reviewed & Not Pertinent, Other - unable to obtain at this time. - Past Medical History Cardiac Medical History: Reports: Hx Hypertension - no meds Renal/ Medical History: Denies: Hx Peritoneal Dialysis Past Surgical History: Reports: Hx Orthopedic Surgery - back surgery x1. left knee surgery. Review of Systems - Review of Systems Notes: Constitutional: Negative for fever. HENT: Negative for sore throat. Eyes: Negative for visual changes. Cardiovascular: Positive for chest pain. Respiratory: Positive for shortness of breath. Gastrointestinal: Negative for abdominal pain, vomiting or diarrhea. Genitourinary: Negative for dysuria. Musculoskeletal: Negative for back pain. Skin: Negative for rash. Neurological: Negative for headaches, weakness or numbness. 10 point ROS negative except as marked above and in HPI. Physical Exam - Vital signs Vitals: Resp Pulse Ox 15 99 12/23/17 20:00 12/23/17 20:00 Interpretation: Normal Notes: PHYSICAL EXAMINATION: GENERAL: Well-appearing, well-nourished and in no acute distress. HEAD: Atraumatic, normocephalic. EYES: Pupils equal round and reactive to light, extraocular movements intact, sclera anicteric, conjunctiva are normal. ENT: nares patent, oropharynx clear without exudates. Moist mucous membranes. NECK: Normal range of motion, supple without lymphadenopathy LUNGS: Breath sounds clear to auscultation bilaterally and equal. No wheezes rales or rhonchi. HEART: Regular rate and rhythm without murmurs ABDOMEN: Soft, nontender, normoactive bowel sounds. No guarding, no rebound. No masses appreciated. EXTREMITIES: Normal range of motion, no pitting or edema. No cyanosis. NEUROLOGICAL: No focal neurological deficits. Moves all extremities spontaneously and on command. PSYCH: Normal mood, normal affect. SKIN: Warm, Dry, normal turgor, no rashes or lesions noted. Course - Re-evaluation Re-evalutation: 12/23/17 22:00 Presentation of chest pain in an otherwise well appearing patient. Low clinical suspicion for ACS given clinical history, exam, EKG without ST elevations or depressions, and negative initial troponin. HEART score less than or equal to 3. PE also seems unlikely given clinical history, absence of tachycardia or dyspnea. Patient is PERC criteria negative. CXR without evidence of pneumothorax or pneumonia. No widened mediastinum. Aortic dissection also seems unlikely given history, symmetric pulses, CXR, and vitals. Patient notes an associated shortness of breath although admits that the chest pain shortness of breath that he has been having has been ongoing for at least the past 6 weeks and he is actually been evaluated in the emergency department on 4 separate occasions for the same including 1 hospitalization secondary to an adverse reaction for anxiety medication that. His workup here today remains reassuring. I have encouraged him to continue taking the Lexapro that was prescribed as it appears that a large number symptoms may be anxiety mediated and he himself agrees with this assessment. I have encouraged him to follow-up with cardiology for a stress test and echocardiogram to definitively exclude a structural heart disease and to further exclude any coronary artery disease both for which were I have a very low clinical suspicion. - Vital Signs Vital signs: Temp Pulse Resp BP Pulse Ox 98.6 F 17 133/88 H 100 12/23/17 22:16 12/23/17 22:16 12/23/17 22:16 12/23/17 22:16 - Laboratory Result Diagrams: 12/23/17 20:53 12/23/17 20:53 Laboratory results interpreted by me: 12/23/17 12/23/17 20:53 20:53 WBC 11.8 H Hgb 12.8 L RDW 14.7 H Plt Count 475 H BUN 25 H Calcium 10.5 H - Diagnostic Test Radiology reviewed: Image reviewed, Reports reviewed Radiology results interpreted by me: 12/23/17 22:03 Chest x-ray: No acute infiltrate or pneumothorax - EKG Interpretation by Me Additional EKG results interpreted by me: 12/23/17 22:03 Normal sinus rhythm. Rate 79. No ST elevations or depressions. QTC is 390. Discharge - Discharge Clinical Impression: Recurrent chest pain, Shortness of breath Condition: Good Disposition: HOME, SELF-CARE Additional Instructions: You were seen today for chest pain. The exact cause of your pain is unclear. However, based on your cardiac enzyme testing, chest x-ray, and EKG it does not appear that it is from an immediately life-threatening cause at this time. Although your testing here is normal is critical that you follow-up with your primary care physician for continued evaluation of this chest pain and possible stress testing. I recommended you see your physician within the next 24-48 hours to be evaluated for consideration of a stress test. Please return to emergency department immediately if you have worsening of your chest pain, shortness of breath, vomiting, become unable to exert yourself due to pain or difficulty breathing, you pass out, or have any pain that radiates into your arms, jaw, or back. Please also return if you have any additional symptoms that are concerning to you. Referrals: ALLAN VENEGAS MD [ACTIVE STAFF] - Follow up in 3-5 days
--- NOTE | 2017-12-23 22:06 | EKG REPORT ---
SEVERITY:- NORMAL ECG - SINUS RHYTHM : Confirmed by: Wilfrid Quinones 23-Dec-2017 22:05:55
[2017-12-23 22:26] VITALS: BP 133/88
== END 2017-12-23 22:21 | disposition home or self-care (01) ==
LOC: ER 19:35
DX: R07.9 Chest pain, unspecified (principal); R06.02 Shortness of breath; I10 Essential (primary) hypertension
CPT/HCPCS: 36415; 71045; 80048; 84484; 85025; 93005; 93010; 99285